=== PATIENT | male | born 2000 | race Caucasian/White ===

== ENCOUNTER 2021-06-28 16:41 | Emergency (ER) | payer MEDICAID ==
[~2021-06-28] VITALS: Ht 167.6 cm; Wt 51.0 kg
[2021-06-28 16:55] VITALS: BP 111/68
[2021-06-28] MEDS ORDERED: KEN0.1O TP (16:57)
== END 2021-06-28 17:06 | disposition home or self-care (01) ==
LOC: ER 16:41
DX: L30.8 Other specified dermatitis (principal); R21 Rash and other nonspecific skin eruption; F12.90 Cannabis use, unspecified, uncomplicated; Z79.899 Other long term (current) drug therapy
CPT/HCPCS: 99283

== ENCOUNTER 2022-02-08 13:19 | Emergency (ER) | payer MEDICAID ==
[~2022-02-08] VITALS: Ht 167.6 cm; Wt 55.0 kg
[2022-02-08 13:24] VITALS: BP 110/68
== END 2022-02-08 14:45 | disposition home or self-care (01) ==
LOC: ER 13:20
DX: B35.1 Tinea unguium (principal); F12.90 Cannabis use, unspecified, uncomplicated
CPT/HCPCS: 99281